=== PATIENT | female | born 1990 | race Caucasian/White ===

== ENCOUNTER 2025-07-25 14:23 | Inpatient (IN) | payer BC, SELFPAY ==
[2025-07-25 14:33] VITALS: BP 91/44; BMI 26.3
[2025-07-25 15:34] LABS: Hematocrit 31.5 % (37.0-47.0); Hemoglobin 10.0 g/dL (12.0-16.0); Mean Corp Hgb Conc. 31.7 g/dL (33.0-37.0); Mean Corpuscular Volume 78.4 fL (81.0-99.0); Nucleated Red Blood Cells % 0 %; Platelet Count 205 10^3/uL (130-400); Red Cell Dist. Width 15.0 % (11.5-14.5)
[2025-07-25] MEDS: FENTANYL/BUPIVACAINE 100 EPIDURAL (15:55)
[2025-07-25] MEDS: SUBLIMAZE 100 MCG EPIDURAL (15:55)
[2025-07-25] MEDS: MOTRIN 600 MG PO (20:01)
[2025-07-25] MEDS: COLACE 100 MG PO (20:01)
[2025-07-25] MEDS: TYLENOL 650 MG PO (20:02)
[2025-07-26] MEDS: TYLENOL 650 MG PO ×6 (00:13→22:39)
[2025-07-26] MEDS: MOTRIN 600 MG PO ×4 (02:12→20:51)
[2025-07-26 05:22] LABS: Hematocrit 28.3 % (37.0-47.0); Hemoglobin 8.9 g/dL (12.0-16.0)
[2025-07-26] MEDS: COLACE 100 MG PO ×2 (08:45→20:51)
[2025-07-26] MEDS: PRENATAL PLUS 1 TABLET PO (08:45)
[2025-07-26] MEDS: FEOSOL 325 MG PO (12:44)
[2025-07-27] MEDS: MOTRIN 600 MG PO ×2 (02:58→10:27)
[2025-07-27] MEDS: COLACE 100 MG PO (09:30)
[2025-07-27] MEDS: PRENATAL PLUS 1 TABLET PO (09:30)
[2025-07-27] MEDS: FEOSOL PO (10:26)
[2025-07-27] MEDS: TYLENOL 650 MG PO (10:32)
[2025-07-28 13:10] LABS: Syphilis/T. pallidum Ab Reflex Negative (Negative)
== END 2025-07-27 11:46 | disposition home or self-care (01) | DRG 807 ==
LOC: LDRP 14:23
PROVIDERS: ADMITTING PHYSICIAN Obstetrics & Gynecology
PROC: 0HQ9XZZ Repair Perineum Skin, External Approach (ICD-10-PCS; 2025-07-25)
PROC: 10E0XZZ Delivery of Products of Conception, External Approach (ICD-10-PCS; 2025-07-25)
DX: O48.0 Post-term pregnancy (principal); Z37.0 Single live birth; Z3A.40 40 weeks gestation of pregnancy; O76 Abnormality in fetal heart rate and rhythm complicating labor and delivery; O70.0 First degree perineal laceration during delivery
CPT/HCPCS: 85014; 85018; 85025; 86780; 86850; 86900; 86901